=== PATIENT | male | born 1985 | race Caucasian/White ===

== ENCOUNTER 2018-01-05 19:34 | Emergency (ER) | payer SELFPAY ==
[~2018-01-05] VITALS: Ht 172.7 cm; Wt 68.0 kg
[2018-01-05 19:41] VITALS: BP 149/72
[2018-01-05] MEDS: cefTRIAXone IM 1 GM VIAL IM ONE (20:02)
[2018-01-05] MEDS ORDERED: CEPH-264 PO (20:04)
[2018-01-05] MEDS ORDERED: PERM60CR12 TP (20:04)
--- NOTE | 2018-01-05 20:04 | PHYS DOC ---
Past Medical History Past Medical History: No Pertinent History Alcohol Use: Occasionally Drug Use: None Adult General Chief Complaint Chief Complaint: SKIN RASH/ABSCESS HPI HPI 32-year-old male presents for evaluation of rash to his extremities that has been present for one month. He reports was exposed to scabies. States the rash is very pruritic, he has been scratching at the rash on his right arm and now his hand and forearm are red and tender. Denies fevers. Reports up-to-date on tetanus immunization. Review of Systems Review of Systems Constitutional: Denies fever or chills [] Eyes: Denies change in visual acuity, redness, or eye pain [] HENT: Denies nasal congestion or sore throat [] Respiratory: Denies cough or shortness of breath [] Cardiovascular: No additional information not addressed in HPI [] GI: Denies abdominal pain, nausea, vomiting, bloody stools or diarrhea [] : Denies dysuria or hematuria [] All other systems were reviewed and found to be within normal limits, except as documented in this note. Current Medications Current Medications Current Medications Medications (Trade) Dose Ordered Sig/Edwin Start Time Stop Time Status Last Admin Dose Admin Ceftriaxone Sodium (Rocephin Im) 1 gm 1X ONCE 01/05/18 20:00 01/05/18 20:01 DC 01/05/18 20:02 1 GM Allergies Allergies Allergies Coded Allergies Type Severity Reaction Last Updated Verified sulfamethoxazole Allergy Unknown Rash 01/05/18 Yes trimethoprim Allergy Unknown Rash 01/05/18 Yes Physical Exam Physical Exam Constitutional: Well developed, well nourished, no acute distress, non-toxic appearance. [] Cardiovascular:Heart rate regular rhythm, no murmur [] Lungs & Thorax: Bilateral breath sounds clear to auscultation [] Skin: Diffuse rash to all extremities, some areas are linear maculopapule, the right hand dorsal aspect is erythematous with warmth and tenderness that extends up into the dorsal aspect of the wrist Extremities:, no cyanosis, no clubbing, ROM intact[] Neurologic: Alert and oriented X 3, normal motor function, normal sensory function, no focal deficits noted. [] Psychologic: Affect normal, judgement normal, mood normal. [] Current Patient Data Vital Signs Vital Signs Date Time Temp Pulse Resp B/P (MAP) Pulse Ox O2 Delivery O2 Flow Rate FiO2 01/05/18 19:41 98.1 82 18 149/72 (97) 97 Room Air 98.1 EKG EKG [] Radiology/Procedures Radiology/Procedures [] Course & Med Decision Making Course & Med Decision Making Pertinent Labs and Imaging studies reviewed. (See chart for details) [Patient is treated with permethrin cream for scabies rash, known exposure, concern for cellulitis to the right hand secondary to pruritus from the rash. Patient is given IM Rocephin tonight in the emergency room, prescription for Keflex and permethrin cream. Patient states lives in [place], is here visiting. Recommend he follow up with primary care doctor in 2-3 days, return to ER for new or worsening symptoms.] Dragon Disclaimer Dragon Disclaimer This electronic medical record was generated, in whole or in part, using a voice recognition dictation system. Departure Departure Impression: Primary Impression: Scabies Additional Impression: Cellulitis Disposition: 01 HOME, SELF-CARE Condition: STABLE Patient Instructions: Cellulitis, [id number], Scabies Scripts Permethrin (PERMETHRIN) 60 Gm Cream..g. 1 GERMAN TP ONCE, #60 GM 1 Refill Prov: DMITRY PINON APRN 01/05/18 Cephalexin (KEFLEX) 500 Mg Capsule 500 MG PO QID for 10 Days, #40 CAP Prov: DMITRY PINON APRN 01/05/18 Problem Qualifiers DMITRY PINON APRN Jan 05, 2018 20:04
== END 2018-01-05 20:10 | disposition home or self-care (01) ==
LOC: ER 19:34
DX: L03.113 Cellulitis of right upper limb (principal); B86 Scabies; Z88.1 Allergy status to other antibiotic agents; Z88.2 Allergy status to sulfonamides
CPT/HCPCS: 96372; 99283; J0696